=== PATIENT | male | born 1955 | race American Indian/Alaskan Native ===

== ENCOUNTER 2020-09-27 07:34 | Observation (INO) | payer MEDICARE ==
--- NOTE | 2020-09-27 07:55 | Emergency Department Report ---
ED Shortness of Breath HPI - General Chief Complaint: Dyspnea/Respdistress Stated Complaint: CRISS/WEAKNESS X 2 WEEKS Time Seen by Provider: 09/27/20 07:49 Source: patient, EMS Mode of arrival: Stretcher Limitations: No Limitations - History of Present Illness Initial Comments: Chief complaint: Shortness of breath low oxygen HPI: This is a 65-year-old male with history of end-stage renal disease on hemodialysis Friday, hypertension, stomach cancer in remission status post chemotherapy who presents with shortness of breath cough for several weeks. Patient has had generalized weakness. Patient was transported from dialysis center [facility] on [facility] due to low oxygen saturation. Oxygen saturation 67% on room air. 99% on nasal cannula. Next No history of COPD or CHF. He smoked tobacco several years ago remotely. 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 He lives alone. No known sick contacts. MD Complaint: shortness of breath, cough -: Gradual (2 weeks) Severity: moderate Consistency: constant Improves With: nothing Worsens With: nothing Known History Of: other (End-stage renal disease on hemodialysis) Associated Symptoms: cough, other (Generalized malaise) - Related Data Allergies Allergy/AdvReac Type Severity Reaction Status Date / Time enalapril Allergy Anaphylaxis Verified 09/27/20 07:41 ED Review of Systems ROS: Stated complaint: CRISS/WEAKNESS X 2 WEEKS Other details as noted in HPI Comment: All other systems reviewed and negative Constitutional: malaise. denies: chills, fever Respiratory: cough, shortness of breath Gastrointestinal: denies: abdominal pain Musculoskeletal: denies: back pain Neurological: denies: headache, weakness ED Past Medical Hx - Past Medical History Previous Medical History?: Yes Hx Hypertension: Yes Hx Renal Disease: Yes (End-stage renal disease hemodialysis Friday) Additional medical history: Stomach cancer in remission since 2019 - Surgical History Past Surgical History?: No - Family History Family history: hypertension - Social History Smoking Status: Former Smoker Substance Use Type: None ED Physical Exam - General Limitations: No Limitations General appearance: alert, in no apparent distress, other (Frequent cough speaking full word sentences) - Head Head exam: Present: atraumatic, normocephalic - Eye Eye exam: Present: normal appearance - ENT ENT exam: Present: mucous membranes moist - Neck Neck exam: Present: normal inspection, full ROM - Respiratory Respiratory exam: Present: rales, decreased breath sounds. Absent: respiratory distress, wheezes, rhonchi, accessory muscle use, prolonged expiratory - Cardiovascular Cardiovascular Exam: Present: regular rate, normal rhythm, normal heart sounds. Absent: systolic murmur, diastolic murmur, rubs, gallop - GI/Abdominal GI/Abdominal exam: Present: soft, normal bowel sounds. Absent: distended, tenderness, guarding, rebound - Rectal Rectal exam: Present: deferred - Extremities Exam Extremities exam: Present: normal inspection - Neurological Exam Neurological exam: Present: alert, oriented X3 - Psychiatric Psychiatric exam: Present: normal affect, normal mood - Skin Skin exam: Present: warm, dry, intact, normal color. Absent: rash ED Course Vital Signs 09/27/20 09/27/20 09/27/20 07:41 09:23 09:37 Pulse Rate 62 74 Respiratory 20 22 22 Rate Blood Pressure Blood Pressure 160/80 [Left] Blood Pressure 160/80 160/68 [Right] O2 Sat by Pulse 91 88 92 Oximetry 09/27/20 09/27/20 09:45 10:01 Pulse Rate 74 75 Respiratory 22 22 Rate Blood Pressure 159/86 174/97 Blood Pressure [Left] Blood Pressure [Right] O2 Sat by Pulse 96 97 Oximetry ED Medical Decision Making - Lab Data Result diagrams: 09/27/20 11:02 09/27/20 11:02 Laboratory Results - last 24 hr 09/27/20 09/27/20 09/27/20 11:02 11:02 11:02 WBC 9.9 RBC 3.78 Hgb 10.8 L Hct 32.7 L MCV 87 MCH 29 MCHC 33 RDW 18.6 H Plt Count 203 Lymph % (Auto) 12.7 L [place] % (Auto) 12.9 H Eos % (Auto) 1.0 Baso % (Auto) 0.6 Lymph # (Auto) 1.3 [place] # (Auto) 1.3 H Eos # (Auto) 0.1 Baso # (Auto) 0.1 Seg Neutrophils % 72.8 H Seg Neutrophils # 7.2 D-Dimer Sodium 143 Potassium 3.0 L Chloride 94.2 L Carbon Dioxide 36 H Anion Gap 16 BUN 35 H Creatinine 7.5 H Estimated GFR 9 BUN/Creatinine Ratio 5 Glucose 116 H Calcium 9.4 Total Bilirubin 0.90 AST 22 ALT 19 Alkaline Phosphatase 197 H Lactate Dehydrogenase 272 H C-Reactive Protein 4.60 H Total Protein 6.9 Albumin 3.5 L Albumin/Globulin Ratio 1.0 09/27/20 11:02 WBC RBC Hgb Hct MCV MCH MCHC RDW Plt Count Lymph % (Auto) [place] % (Auto) Eos % (Auto) Baso % (Auto) Lymph # (Auto) [place] # (Auto) Eos # (Auto) Baso # (Auto) Seg Neutrophils % Seg Neutrophils # D-Dimer 576.35 H Sodium Potassium Chloride Carbon Dioxide Anion Gap BUN Creatinine Estimated GFR BUN/Creatinine Ratio Glucose Calcium Total Bilirubin AST ALT Alkaline Phosphatase Lactate Dehydrogenase C-Reactive Protein Total Protein Albumin Albumin/Globulin Ratio - EKG Data -: EKG Interpreted by Id EKG shows normal: sinus rhythm, axis, intervals, QRS complexes, ST-T waves Rate: normal - EKG Data Interpretation: normal EKG 09/27/20 10:13 EKG 052 EKG obtained EKG interpreted by sd Normal sinus rhythm normal rate normal axis normal intervals no ST elevation no ST-T signs of ischemia normal EKG rate 75 bpm - Radiology Data Radiology results: report reviewed Patient Name: KASEY SHI Gender: Male Date of : 1955 Home Phone: Referring Provider: FABIOLA KRAFT Organization: [facility] Accession Number: [id number] Requested Date: September 27, 2020 07:55 Report Status: Final Requested Procedure: 1 Procedure Description: XR chest 1V ap Modality: XR Findings Reporting MD: Ceasar Agudelo Dictation Time: September 27, 2020 07:27 Alarm Mechanism Adjuster: Not available Exercise Equipment Repair Technician Date: CHEST 1 VIEW INDICATION: Dyspnea. COMPARISON: None available FINDINGS: Support devices: None. Heart: Heart size is at the upper limits of normal. Lungs/Pleura: The interstitium is prominent bilaterally. This could represent interstitial edema or chronic changes. No consolidation or classic infiltrate with air bronchograms. Small bilateral pleural effusions are identified. No pneumothorax. Additional findings: None. IMPRESSION: Borderline heart size, prominent interstitium and small bilateral pleural effusions. This probably represents mild CHF. Interstitial lung disease could be considered. Signer Name: Ceasar Agudelo Jr, MD Signed: 09/27/2020 7:27 AM Workstation Name: [id number] - Medical Decision Making Acute respiratory failure hypoxia: Differential diagnosis includes atypical pneumonia such as COVID-19 infection, pulmonary edema due to renal disease, pulmonary edema due to heart failure., Commune acquired pneumonia. Patient was treated with antibiotics. Decadron also initiated in emergency department for presumable viral pneumonitis. I have consulted vending machine mechanic team. Patient is followed by Reji Frances. Patient admitted to the hospital service in fair condition. Work-up notable for potassium 3.0, Covid markers elevated LDH CRP D-dimer Critical care attestation.: If time is entered above; I have spent that time in minutes in the direct care of this critically ill patient, excluding procedure time. ED Disposition Clinical Impression: Acute respiratory failure with hypoxia, Acute heart failure, Suspected COVID-19 virus infection, End-stage renal disease on hemodialysis, Pulmonary edema Disposition: OP ADMIT IP TO THIS HOSP Is pt being admited?: Yes Does the pt Need Aspirin: No Condition: Stable Instructions: Pulmonary Edema (ED) Referrals: PRIMARY CARE, [Primary Care Provider] - 3-5 Days
--- NOTE | 2020-09-27 08:31 | XRay Report ---
CHEST 1 VIEW INDICATION: Dyspnea. COMPARISON: None available FINDINGS: Support devices: None. Heart: Heart size is at the upper limits of normal. Lungs/Pleura: The interstitium is prominent bilaterally. This could represent interstitial edema or c hronic changes. No consolidation or classic infiltrate with air bronchograms. Small bilateral pleural effusions are identified. No pneumothorax. Additional findings: None. IMPRESSION: Borderline heart size, prominent interstitium and small bilateral pleural effusions. This probably r epresents mild CHF. Interstitial lung disease could be considered. Signer Name: Ceasar Agudelo Jr, MD Signed: 09/27/2020 8:27 AM Workstation Name: [id number]
[2020-09-27 11:29] LABS: Basophils # (Auto) 0.1 K/mm3 (0.0-0.1); Basophils % (Auto) 0.6 % (0.0-1.8); Eosinophils # (Auto) 0.1 K/mm3 (0.0-0.4); Hematocrit 32.7 % (35.5-45.6); Hemoglobin 10.8 gm/dl (11.8-15.2); Lymphocytes # (Auto) 1.3 K/mm3 (1.2-5.4); Lymphocytes % (Auto) 12.7 % (13.4-35.0); Mean Corpuscular HGB Conc 33 % (32-34); Mean Corpuscular Volume 87 fl (84-94); Monocytes # (Auto) 1.3 K/mm3 (0.0-0.8); Monocytes % (Auto) 12.9 % (0.0-7.3); Platelet Count 203 K/mm3 (140-440); Red Blood Count 3.78 M/mm3 (3.65-5.03); Red Cell Distribution Width 18.6 % (13.2-15.2)
[2020-09-27 11:42] LABS: C-Reactive Protein 4.6 mg/dL (0.00-1.30)
[2020-09-27 11:43] LABS: Albumin 3.5 g/dL (3.9-5); Calcium 9.4 mg/dL (8.4-10.2)
[2020-09-27] MEDS ORDERED: cefTRIAXone/NS 1 GM/50 ML 1 GM/50 ML BAG IV ONE (11:53)
[2020-09-27] MEDS ORDERED: AZITHROMYCIN/NS 500 MG/250 ML 500 MG/250 ML BAG IV ONE (11:53)
[2020-09-27] MEDS ORDERED: SODIUM CHLORIDE 0.9% 100 ML IV PRN (14:08)
[2020-09-27 14:11] LABS: Chol/HDL Ratio 1.55 %
--- NOTE | 2020-09-27 15:33 | Consultation ---
History of Present Illness - Reason for Consult Consult date: 09/27/20 end stage renal disease Requesting physician: FABIOLA KRAFT - History of Present Illness This is a 65-year-old male with history of end-stage renal disease on hemodialysis Friday, hypertension, stomach cancer in remission status post chemotherapy who presents with shortness of breath cough for several weeks. Patient has had generalized weakness. Patient was transported from [facility] on [facility] due to low oxygen saturation. Oxygen saturation 67% on room air. 99% on nasal cannula. Next No history of COPD or CHF. He smoked tobacco several years ago remotely. Chest x-ray showed evidence of vascular congestion. Dialysis has been initiated. He is tolerating it well. Denies any nausea vomiting or diarrhea. Patient states that he has not missed any dialysis treatment Past History Past Medical History: cancer, dialysis, hypertension, other (History of stomach cancer and COPD) Past Surgical History: Other (Creation of AV fistula) Social history: other (Remote history of smoking) Family history: no significant family history Medications and Allergies Allergies Allergy/AdvReac Type Severity Reaction Status Date / Time enalapril Allergy Anaphylaxis Verified 09/27/20 07:41 Active Meds: Active Medications Sodium Chloride (Nacl 0.9%) 100 mls @ 999 mls/hr IV BRNADON PRN PRN Reason: Hypotension Review of Systems All systems: negative (Negative except as noted above) Exam - Vital Signs Vital signs: Vital Signs Pulse Resp BP Pulse Ox 62 20 160/80 91 09/27/20 07:41 09/27/20 07:41 09/27/20 07:41 09/27/20 07:41 - General Appearance General appearance: well-developed, well-nourished, appears stated age EENT: PERRL, mucous membranes moist Neck: Present: neck supple, trachea midline. Absent: JVD/HJR, Masses Respiratory: Decreased Breath Sounds (At the bases) Heart: regular, normal heart rate Gastrointestinal: Present: normal, normoactive bowel sounds Integumentary: no rash, other (1+ edema on the left side. AV fistula in his left upper extremity. Cannulated for dialysis.) Results - Lab Results 09/27/20 11:02 09/27/20 11:02 Most recent lab results Calcium 9.4 mg/dL (8.4-10.2) 09/27/20 11:02 Assessment and Plan Impression * End-stage renal disease on maintenance hemodialysis * Shortness of breath. Most likely secondary to CHF * Hypertension * History of stomach cancer * Hypokalemia * Anemia secondary to ESRD Recommendations * Patient is clinically volume overloaded. Chest x-ray also does show some evidence of vascular congestion * Remove fluid as tolerated with dialysis * Continue dialysis on MWF schedule * Epogen per protocol * Use higher potassium bath with dialysis * Binders with meals * Adjust diet and meds for ESRD state * No IV, BP or venipuncture in his access arm * Thank you very much for the consultation. Shall follow along with you
[2020-09-27 16:18] LABS: Hepatitis B Surface Antigen Non-Reactive (Negative); Hepatitis C Virus Antibody Non-Reactive (NonReactive)
--- NOTE | 2020-09-27 19:32 | History and Physical Report ---
History of Present Illness Date of examination: 09/27/20 Date of admission: 09/27/20 11:55 Chief complaint: Shortness of breath and low oxygen since a.m. History of present illness: 65-year-old male with history of end-stage renal disease on hemodialysis Friday, Friday, Friday and hypertension and stomach cancer in remission sent from dialysis center for low oxygen saturation levels. Oxygen saturation levels 67% on room air. With oxygen improved to 99%. No history of CHF or COPD. No fever or chills. No exposure to coronavirus. Shortness of breath at rest and. [facility] nephrology takes care of his dialysis and end-stage renal disease. Patient also has a history of hypertension. Patient is compliant with his medications and hemodialysis. - Past Medical History Previous Medical History?: Yes --Hypertension: Yes --Renal Disease: Yes (End-stage renal disease hemodialysis Friday) Additional medical history: Stomach cancer in remission since 2019 - Surgical History Past Surgical History?: No - Family History Family history: hypertension - Social History Smoking Status: Former Smoker Substance Use Type: None --Review of Systems ROS: Constitutional no weight loss or weight gain no fever or chills HEENT no sore throat no post nasal drip no diplopia Neck no neck stiffness no lymph gland enlargement Chest and lungs shortness of breath at rest CVS orthopnea present, hypoxic GI no nausea no vomiting no diarrhea Genitourinary system no dysuria no flank pain Musculoskeletal system no muscle pains no joint pains 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 no syncope no seizures Skin no rash no itching Psychiatric no depression no homicidal or suicidal tendencies Hematologic no lymphedema or bruising Endocrine no polydipsia no polyuria no cold intolerance no heat intolerance Past History Past Medical History: cancer, dialysis, hypertension, other (History of stomach cancer and COPD) Past Surgical History: Other (Creation of AV fistula) Social history: other (Remote history of smoking) Family history: no significant family history Medications and Allergies Allergies Allergy/AdvReac Type Severity Reaction Status Date / Time enalapril Allergy Anaphylaxis Verified 09/27/20 07:41 Active Meds: Active Medications Sodium Chloride (Nacl 0.9%) 100 mls @ 999 mls/hr IV BRANDON PRN PRN Reason: Hypotension Exam - Constitutional Vitals: Temp Pulse Resp BP Pulse Ox 97.5 F L 73 16 157/85 95 09/27/20 18:59 09/27/20 18:59 09/27/20 18:59 09/27/20 18:59 09/27/20 16:11 General appearance: Present: mild distress, well-nourished - EENT Eyes: Present: PERRL ENT: hearing intact, clear oral mucosa - Neck Neck: Present: supple, normal ROM - Respiratory Respiratory effort: normal Respiratory: bilateral: CTA, rales - Cardiovascular Heart rate: 78 Rhythm: regular Heart Sounds: Present: S1 & S2. Absent: rub, click - Extremities Extremities: pulses symmetrical, No edema Peripheral Pulses: within normal limits - Abdominal General gastrointestinal: Present: soft, non-tender, non-distended, normal bowel sounds Male genitourinary: Present: normal - Integumentary Integumentary: Present: clear, warm, dry - Musculoskeletal Musculoskeletal: gait normal, strength equal bilaterally - Psychiatric Psychiatric: appropriate mood/affect, intact judgment & insight - Neurologic Neurologic: CNII-XII intact, moves all extremities - Allied Health Allied health notes reviewed: nursing, case management HEART Score - HEART Score History: Slightly suspicious Age: 45-65 Risk factors: > 3 risk factors or hx of atherosclerotic disease Troponin: Troponin T 0.211 ng/mL (0.00-0.029) H* 09/27/20 11:02 Troponin: 1-3x normal limit - Critical Actions Critical Actions: 4-6 pts:12-16.6% risk of adverse cardiac event. Should be admitted Results - Labs CBC & Chem 7: 09/28/20 05:14 09/27/20 11:02 Labs: Laboratory Last Values WBC 9.9 K/mm3 (4.5-11.0) 09/27/20 11:02 RBC 3.78 M/mm3 (3.65-5.03) 09/27/20 11:02 Hgb 10.8 gm/dl (11.8-15.2) L 09/27/20 11:02 Hct 32.7 % (35.5-45.6) L 09/27/20 11:02 MCV 87 fl (84-94) 09/27/20 11:02 MCH 29 pg (28-32) 09/27/20 11:02 MCHC 33 % (32-34) 09/27/20 11:02 RDW 18.6 % (13.2-15.2) H 09/27/20 11:02 Plt Count 203 K/mm3 (140-440) 09/27/20 11:02 Lymph % (Auto) 12.7 % (13.4-35.0) L 09/27/20 11:02 [place] % (Auto) 12.9 % (0.0-7.3) H 09/27/20 11:02 Eos % (Auto) 1.0 % (0.0-4.3) 09/27/20 11:02 Baso % (Auto) 0.6 % (0.0-1.8) 09/27/20 11:02 Lymph # (Auto) 1.3 K/mm3 (1.2-5.4) 09/27/20 11:02 [place] # (Auto) 1.3 K/mm3 (0.0-0.8) H 09/27/20 11:02 Eos # (Auto) 0.1 K/mm3 (0.0-0.4) 09/27/20 11:02 Baso # (Auto) 0.1 K/mm3 (0.0-0.1) 09/27/20 11:02 Seg Neutrophils % 72.8 % (40.0-70.0) H 09/27/20 11:02 Seg Neutrophils # 7.2 K/mm3 (1.8-7.7) 09/27/20 11:02 D-Dimer 576.35 ng/mlDDU (0-234) H 09/27/20 11:02 Sodium 143 mmol/L (137-145) 09/27/20 11:02 Potassium 3.0 mmol/L (3.6-5.0) L 09/27/20 11:02 Chloride 94.2 mmol/L (98-107) L 09/27/20 11:02 Carbon Dioxide 36 mmol/L (22-30) H 09/27/20 11:02 Anion Gap 16 mmol/L 09/27/20 11:02 BUN 35 mg/dL (9-20) H 09/27/20 11:02 Creatinine 7.5 mg/dL (0.8-1.3) H 09/27/20 11:02 Estimated GFR 9 ml/min 09/27/20 11:02 BUN/Creatinine Ratio 5 % 09/27/20 11:02 Glucose 116 mg/dL (75-100) H 09/27/20 11:02 Calcium 9.4 mg/dL (8.4-10.2) 09/27/20 11:02 Ferritin 622.6 ng/mL (30.0-300.0) H 09/27/20 11:02 Total Bilirubin 0.90 mg/dL (0.1-1.2) 09/27/20 11:02 AST 22 units/L (5-40) 09/27/20 11:02 ALT 19 units/L (7-56) 09/27/20 11:02 Alkaline Phosphatase 197 units/L (35-129) H 09/27/20 11:02 Lactate Dehydrogenase 272 units/L (91-180) H 09/27/20 11:02 Troponin T 0.211 ng/mL (0.00-0.029) H* 09/27/20 11:02 C-Reactive Protein 4.60 mg/dL (0.00-1.30) H 09/27/20 11:02 NT-Pro-B Natriuret Pep 49040 pg/mL (0-900) H 09/27/20 11:02 Total Protein 6.9 g/dL (6.3-8.2) 09/27/20 11:02 Albumin 3.5 g/dL (3.9-5) L 09/27/20 11:02 Albumin/Globulin Ratio 1.0 % 09/27/20 11:02 Triglycerides 31 mg/dL (2-149) 09/27/20 11:02 Cholesterol 62 mg/dL (50-199) 09/27/20 11:02 LDL Cholesterol Direct 20 mg/dL (50-130) L 09/27/20 11:02 HDL Cholesterol 40 mg/dL (40-59) 09/27/20 11:02 Cholesterol/HDL Ratio 1.55 % 09/27/20 11:02 Procalcitonin 1.12 ng/mL (<0.15) 09/27/20 11:02 Coronavirus (PCR) Negative (Negative) 09/27/20 09:37 Hepatitis A IgM Ab Non-reactive (NonReactive) 09/27/20 11:02 Hep Bs Antigen Non-reactive (Negative) 09/27/20 11:02 Hep B Core IgM Ab Non-reactive (NonReactive) 09/27/20 11:02 Hepatitis C Antibody Non-reactive (NonReactive) 09/27/20 11:02 Microbiology: Microbiology 09/27/20 11:02 Peripheral/Venous Blood Culture - Preliminary Culture in Progress 09/27/20 11:02 Peripheral/Venous Blood Culture - Preliminary Culture in Progress - Imaging and Cardiology EKG: report reviewed (Sinus rhythm sinus tachycardia no acute ST-T wave changes) Chest x-ray: report reviewed (Pulmonary vascular congestion: Bilateral small pleural effusions) Assessment and Plan Advance Directives: Yes (Full code) VTE prophylaxis?: Chemical Plan of care discussed with patient/family: Yes - Patient Problems (1) Acute respiratory failure with hypoxia Current Visit: Yes Status: Acute Plan to address problem: Secondary to volume overload Needs oxygen supplementation BiPAP as necessary (2) End-stage renal disease on hemodialysis Current Visit: Yes Status: Chronic Plan to address problem: Patient to get emergent hemodialysis Nephrology consulted (3) Pulmonary edema Current Visit: Yes Status: Acute Qualifiers: Chronicity: acute Qualified Code(s): J81.0 - Acute pulmonary edema Plan to address problem: Secondary to excessive fluid intake Needs increased ultrafiltration and removal of fluid (4) Hypertension Current Visit: Yes Status: Chronic Qualifiers: Hypertension type: primary hypertension Qualified Code(s): I10 - Essential (primary) hypertension Plan to address problem: Continue antihypertensives and adjust medications (5) Hypokalemia Current Visit: Yes Status: Acute Plan to address problem: Supplemented (6) Suspected COVID-19 virus infection Current Visit: Yes Status: Acute Plan to address problem: Suspected but unlikely Coronavirus PCR to be checked (7) DVT prophylaxis Current Visit: Yes Status: Acute Plan to address problem: On heparin and GI prophylaxis
[2020-09-27] MEDS ORDERED: ACETAMINOPHEN 325 MG TAB PO PRN (20:37)
[2020-09-27] MEDS ORDERED: MORPHINE 2 MG/1 ML INJ IV PRN (20:37)
[2020-09-27] MEDS ORDERED: oxyCODONE /ACETAMINOPHEN 5-325MG TAB PO PRN (20:37)
[2020-09-27] MEDS ORDERED: ONDANSETRON 4 MG/2 ML INJ IV PRN (20:37)
[2020-09-27] MEDS: HEPARIN 5,000 UNIT/1 ML VIAL SUB-Q SCH (22:03)
[2020-09-27] MEDS: FAMOTIDINE 10 MG TAB PO SCH (22:03)
[2020-09-28 06:11] LABS: Hematocrit 35.3 % (35.5-45.6); Hemoglobin 11.6 gm/dl (11.8-15.2); Mean Corpuscular HGB Conc 33 % (32-34); Mean Corpuscular Volume 89 fl (84-94); Platelet Count 203 K/mm3 (140-440); Red Blood Count 3.99 M/mm3 (3.65-5.03); Red Cell Distribution Width 18.7 % (13.2-15.2)
[2020-09-28 06:39] LABS: Albumin 3.3 g/dL (3.9-5); Calcium 8.9 mg/dL (8.4-10.2)
[2020-09-28] MEDS ORDERED: POTASSIUM CHLORIDE ER 20 MEQ TAB PO ONE (07:25)
[2020-09-28 08:08] LABS: Total Cells Counted 100
[2020-09-28 08:10] LABS: Hypochromasia Few; Ovalocytes 1+; Poikilocytosis 1+; Spherocytes 1+; Target Cells 1+
[2020-09-28 08:11] LABS: Anisocytosis Few; Platelet Estimate Consistent w Auto; Toxic Granulation Few
[2020-09-28 08:46] LABS: Creatine Kinase MB 5.9 ng/mL (0.0-4.0)
--- NOTE | 2020-09-28 08:51 | Progress Note ---
Assessment and Plan Impression * End-stage renal disease on maintenance hemodialysis * Shortness of breath. Most likely secondary to CHF * Hypertension * History of stomach cancer * Hypokalemia * Anemia secondary to ESRD Recommendations * Patient had uneventful hemodialysis yesterday. CHF seems to have improved significantly * Shall repeat a chest x-ray. * Consider cardiology evaluation * Continue dialysis on MWF schedule * Epogen per protocol * Hypokalemia has been corrected. Continue with 3K bath with dialysis * Binders with meals * Adjust diet and meds for ESRD state * No IV, BP or venipuncture in his access arm Subjective Date of service: 09/28/20 Interval history: Patient feels better this morning. Shortness of breath has also improved. Currently on oxygen via nasal cannula at 4 L/min. Objective - Vital Signs Vital signs: Vital Signs - 12hr 09/27/20 09/28/20 09/28/20 23:01 04:00 04:48 Temperature 97.9 F 98.0 F Pulse Rate 79 72 Respiratory 20 20 Rate Blood Pressure 145/69 176/92 O2 Sat by Pulse 97 95 95 Oximetry - General Appearance General appearance: well-developed, well-nourished, appears stated age EENT: PERRL, mucous membranes moist Neck: no JVD, no thyromegaly, no carotid bruit, supple Respiratory: Present: Other (Fine crackles in the left base) Cardiology: regular, normal heart rate Gastrointestinal: normal, normoactive bowel sounds Integumentary: no rash, other (No edema. AV fistula in his left upper arm. Good bruit and thrill.) - Lab 09/28/20 05:14 09/28/20 05:14 Most recent lab results Calcium 8.9 mg/dL (8.4-10.2) 09/28/20 05:14 Medications & Allergies - Medications Allergies/Adverse Reactions: Allergies enalapril Allergy (Verified 09/27/20 07:41) Anaphylaxis Active Medications: Generic Name Dose Route Start Last Admin Trade Name Freq PRN Reason Stop Dose Admin Acetaminophen 650 mg 09/27/20 20:37 Acetaminophen 325 Mg Tab PO Q4H PRN Pain MILD(1-3)/Fever >100.5/FORTE Famotidine 10 mg 09/27/20 22:00 09/27/20 22:03 Famotidine 10 Mg Tab PO 10 mg BID CARINE Administration Heparin Sodium (Porcine) 5,000 unit 09/27/20 22:00 09/27/20 22:03 Heparin 5,000 Unit/1 Ml Vial SUB-Q 5,000 unit Q12HR CARINE Administration Sodium Chloride 100 mls @ 999 mls/hr 09/27/20 14:08 Nacl 0.9% IV BRANDON PRN Hypotension Azithromycin 500 mg in 250 mls @ 250 mls/hr 09/28/20 10:00 Zithromax/Ns IV Q24HR CARINE Morphine Sulfate 2 mg 09/27/20 20:37 Morphine 2 Mg/1 Ml Inj IV Q4H PRN Pain, Moderate (4-6) Ondansetron HCl 4 mg 09/27/20 20:37 Ondansetron 4 Mg/2 Ml Inj IV Q8H PRN Nausea And Vomiting Oxycodone/Acetaminophen 1 tab 09/27/20 20:37 09/27/20 22:10 Oxycodone /Acetaminophen 5-325mg Tab PO 1 tab Q6H PRN Administration Pain, Moderate (4-6) Sodium Chloride 10 ml 09/27/20 22:00 09/27/20 22:04 Sodium Chloride 0.9% 10 Ml Flush Syringe IV 10 ml BID CARINE Administration Sodium Chloride 10 ml 09/27/20 20:37 Sodium Chloride 0.9% 10 Ml Flush Syringe IV PRN PRN LINE FLUSH
[2020-09-28] MEDS ORDERED: SODIUM CHLORIDE 0.9% 100 ML IV PRN (09:06)
--- NOTE | 2020-09-28 09:12 | Electrocardiograph Report ---
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
--- NOTE | 2020-09-28 09:30 | XRay Report ---
CHEST 1 VIEW 09/28/2020 9:03 AM INDICATION / CLINICAL INFORMATION: Shortness of breath. COMPARISON: 09/27/2020 FINDINGS: SUPPORT DEVICES: None. HEART / MEDIASTINUM: Stable. LUNGS / PLEURA: Stable peripheral interstitial opacities. Stable bilateral pleural effusion. No pneum othorax. ADDITIONAL FINDINGS: No significant additional findings. IMPRESSION: 1. No adverse change from the prior exam. Signer Name: Baldo Dickerson MD Signed: 09/28/2020 9:25 AM Workstation Name: [id number]
[2020-09-28] MEDS: HEPARIN 5,000 UNIT/1 ML VIAL SUB-Q SCH ×2 (09:42→22:01)
[2020-09-28] MEDS: FAMOTIDINE 10 MG TAB PO SCH ×2 (09:42→22:01)
[2020-09-28] MEDS: AZITHROMYCIN/NS 500 MG/250 ML 500 MG/250 ML BAG IV SCH (09:43)
[2020-09-28] MEDS ORDERED: HEPARIN 5,000 UNIT/1 ML VIAL SUB-Q SCH (10:00)
[2020-09-28] MEDS ORDERED: hydrALAZINE 20 MG/1 ML INJ IV PRN (12:45)
--- NOTE | 2020-09-28 12:45 | Progress Note ---
Assessment and Plan - Patient Problems (1) Acute heart failure Current Visit: Yes Status: Acute Plan to address problem: Acute heart failure multifactorial secondary to volume overload and history of heart failure. Responded very well to dialysis. We will continue dialysis continue diuresis as were doing. Patient is improving. (2) Acute respiratory failure with hypoxia Current Visit: Yes Status: Acute Plan to address problem: Multifactorial secondary to volume overload and congestive heart failure. Continue present diuresis continue hemodialysis as were doing. Add nebulizers every 6 hours as needed (3) DVT prophylaxis Current Visit: Yes Status: Acute (4) Pulmonary edema Current Visit: Yes Status: Acute Qualifiers: Chronicity: acute Qualified Code(s): J81.0 - Acute pulmonary edema (5) Suspected COVID-19 virus infection Current Visit: Yes Status: Acute Plan to address problem: Patient ruled out for COVID-19 (6) End-stage renal disease on hemodialysis Current Visit: Yes Status: Chronic Plan to address problem: Nephrology is involved aware and is dialyzing patient as required. Patient has improved anticipated discharge 1 to 2 days. (7) Hypertension Current Visit: Yes Status: Chronic Qualifiers: Hypertension type: primary hypertension Qualified Code(s): I10 - Essential (primary) hypertension Plan to address problem: Somewhat elevated today we will add hydralazine. Will hold for days of h emodialysis. Subjective Date of service: 09/28/20 Principal diagnosis: Acute respiratory failure Interval history: 65-year-old male with a history of end-stage renal disease presents to the ED with hypoxemia saturations of 67%. Shortness of breath no chest pain. Work-up ED patient found to be in congestive heart failure. Patient was dialyzed yesterday feels much better this a.m. States he is breathing much better O2 saturations are much better not requiring O2 at this time. Patient able to speak in full sentences without any acute distress. No dyspnea with conversation. Objective - Constitutional Vitals: Vital Signs - 12hr 09/28/20 09/28/20 04:00 04:48 Temperature 98.0 F Pulse Rate 72 Respiratory 20 20 Rate Blood Pressure 176/92 O2 Sat by Pulse 95 95 Oximetry General appearance: Present: no acute distress, well-nourished - EENT Eyes: PERRL, EOM intact ENT: hearing intact, clear oral mucosa Ears: bilateral: normal - Neck Neck: supple, normal ROM - Respiratory Respiratory effort: normal Respiratory: bilateral: rhonchi (Rhonchi bilateral bases left greater than right.) - Breasts Breasts: normal - Cardiovascular Rhythm: regular Heart Sounds: Present: S1 & S2. Absent: gallop, rub Extremities: pulses intact, No edema, normal color, Full ROM - Gastrointestinal General gastrointestinal: Present: soft, non-tender, non-distended, normal bowel sounds - Genitourinary Male genitourinary: normal - Integumentary Integumentary: clear, warm, dry - Musculoskeletal Musculoskeletal: 1, strength equal bilaterally - Neurologic Neurologic: moves all extremities - Psychiatric Psychiatric: memory intact, appropriate mood/affect, intact judgment & insight - Labs CBC & Chem 7: 09/28/20 05:14 09/28/20 05:14 Labs: Abnormal lab results 09/27/20 09/27/20 09/27/20 Range/Units 11:02 11:02 11:02 Hgb (11.8-15.2) gm/dl Hct (35.5-45.6) % RDW (13.2-15.2) % Seg Neuts % (Manual) (40.0-70.0) % Lymphocytes % (Manual) (13.4-35.0) % Seg Neutrophils # Man (1.8-7.7) K/mm3 Lymphocytes # (Manual) (1.2-5.4) K/mm3 BUN (9-20) mg/dL Creatinine (0.8-1.3) mg/dL Hemoglobin A1c (4-6) % Ferritin 622.6 H (30.0-300.0) ng/mL Alkaline Phosphatase (35-129) units/L CK-MB (CK-2) (0.0-4.0) ng/mL CK-MB (CK-2) Rel Index (0-4) Troponin T 0.211 H* (0.00-0.029) ng/mL NT-Pro-B Natriuret Pep 47527 H (0-900) pg/mL Albumin (3.9-5) g/dL LDL Cholesterol Direct 20 L (50-130) mg/dL 09/28/20 09/28/20 09/28/20 Range/Units 05:14 05:14 05:14 Hgb 11.6 L (11.8-15.2) gm/dl Hct 35.3 L (35.5-45.6) % RDW 18.7 H (13.2-15.2) % Seg Neuts % (Manual) 90.0 H (40.0-70.0) % Lymphocytes % (Manual) 7.0 L (13.4-35.0) % Seg Neutrophils # Man 9.0 H (1.8-7.7) K/mm3 Lymphocytes # (Manual) 0.7 L (1.2-5.4) K/mm3 BUN 22 H (9-20) mg/dL Creatinine 5.5 H (0.8-1.3) mg/dL Hemoglobin A1c 6.5 H (4-6) % Ferritin (30.0-300.0) ng/mL Alkaline Phosphatase 197 H (35-129) units/L CK-MB (CK-2) (0.0-4.0) ng/mL CK-MB (CK-2) Rel Index (0-4) Troponin T (0.00-0.029) ng/mL NT-Pro-B Natriuret Pep (0-900) pg/mL Albumin 3.3 L (3.9-5) g/dL LDL Cholesterol Direct (50-130) mg/dL 09/28/20 Range/Units 05:14 Hgb (11.8-15.2) gm/dl Hct (35.5-45.6) % RDW (13.2-15.2) % Seg Neuts % (Manual) (40.0-70.0) % Lymphocytes % (Manual) (13.4-35.0) % Seg Neutrophils # Man (1.8-7.7) K/mm3 Lymphocytes # (Manual) (1.2-5.4) K/mm3 BUN (9-20) mg/dL Creatinine (0.8-1.3) mg/dL Hemoglobin A1c (4-6) % Ferritin (30.0-300.0) ng/mL Alkaline Phosphatase (35-129) units/L CK-MB (CK-2) 5.9 H (0.0-4.0) ng/mL CK-MB (CK-2) Rel Index 5.3 H (0-4) Troponin T 0.278 H* D (0.00-0.029) ng/mL NT-Pro-B Natriuret Pep (0-900) pg/mL Albumin (3.9-5) g/dL LDL Cholesterol Direct (50-130) mg/dL HEART Score - HEART Score Age: 45-65 Risk factors: > 3 risk factors or hx of atherosclerotic disease Troponin: Troponin T 0.278 ng/mL (0.00-0.029) H* D 09/28/20 05:14 Troponin: 1-3x normal limit - Critical Actions Critical Actions: 4-6 pts:12-16.6% risk of adverse cardiac event. Should be admitted
[2020-09-28 14:52] LABS: Creatine Kinase MB 5.4 ng/mL (0.0-4.0)
[2020-09-28 18:31] LABS: Creatine Kinase MB 5.8 ng/mL (0.0-4.0)
[2020-09-28] MEDS ORDERED: TEMAZEPAM 15 MG CAP PO ONE (22:47)
--- NOTE | 2020-09-29 10:20 | Discharge Summary ---
Providers - Providers Date of Admission: 09/27/20 11:55 Date of discharge: 09/29/20 Attending physician: KASHMIR NEGRON 09/27/20 12:23 Consult to Physician [CONS] Stat Comment: Consulting Provider: NIKI SHETTY Physician Instructions: Reason For Exam: esrd Primary care physician: [facility] Hospitalization Condition: Stable Hospital course: 65-year-old male with a history of end-stage renal disease presents to the ED with hypoxemia saturations of 67%. Shortness of breath no chest pain. Work-up ED patient found to be in congestive heart failure. Patient is actually on home O2 at 3 L. He uses it as needed. Patient improved with hemodialysis. Shortness of breath improved stable in the bed with 3 L O2. Patient stable for discharge with his regular scheduled home O2. Was most likely secondary to volume overload. Patient also may have some underlying COPD as well. No evidence of failure on physical exam no JVD no lower extremity edema no ascites. Disposition: DC-01 TO HOME OR SELFCARE Final Discharge Diagnosis (Prints w/discharge instructions): Acute hypoxic respiratory failure - Discharge Diagnoses (1) Acute heart failure Status: Acute Comment: Patient diagnosed with acute heart failure. Resolved with hemodialysis. Stable to be discharged after hemodialysis. With home O2. Most likely treating underlying COPD. Follow-up with pulmonology outpatient. Be discharged with 3 L O2. Sats 98% on 3 L. (2) Acute respiratory failure with hypoxia Status: Acute Comment: Resolved. Underlying COPD volume overload for end- stage renal disease. (3) DVT prophylaxis Status: Acute (4) Pulmonary edema Status: Acute Qualifiers: Chronicity: acute Qualified Code(s): J81.0 - Acute pulmonary edema Comment: Mild interstitial edema on presentation. Did have wheezing on exam. (5) Suspected COVID-19 virus infection Status: Acute Comment: Negative for Covid. (6) End-stage renal disease on hemodialysis Status: Chronic Comment: Resume hemodialysis Friday and Fridays. (7) Hypertension Status: Chronic Qualifiers: Hypertension type: primary hypertension Qualified Code(s): I10 - Essential (primary) hypertension Comment: Fairly well controlled. Systolic blood pressure 165 today we will hold because patient is going to hemodialysis today. Has had hypotension in the past. Core Measure Documentation - Palliative Care Palliative Care/ Comfort Measures: Not Applicable - Core Measures Any of the following diagnoses?: none Exam - Constitutional Vitals: Temp Pulse Resp BP Pulse Ox 97.7 F 73 20 176/88 96 09/28/20 21:55 09/29/20 04:22 09/28/20 23:00 09/29/20 04:22 09/29/20 04:22 General appearance: Present: no acute distress, well-nourished - EENT Eyes: Present: PERRL ENT: hearing intact, clear oral mucosa - Neck Neck: Present: supple, normal ROM - Respiratory Respiratory effort: normal Respiratory: bilateral: wheezing - Cardiovascular Heart Sounds: Present: S1 & S2. Absent: rub, click - Extremities Extremities: pulses symmetrical, No edema Peripheral Pulses: within normal limits - Abdominal General gastrointestinal: Present: soft, non-tender, non-distended, normal bowel sounds Male genitourinary: Present: normal - Integumentary Integumentary: Present: clear, warm, dry - Musculoskeletal Musculoskeletal: gait normal, strength equal bilaterally - Psychiatric Psychiatric: appropriate mood/affect, intact judgment & insight - Neurologic Neurologic: CNII-XII intact, moves all extremities Plan Activity: up only with assistance Weight Bearing Status: Full Weight Bearing Diet: renal Special Instructions: restrict fluid intake to (1.5l), home oxygen via, home health RN Durable Medical Equipment Needed Upon Discharge: Oxygen Follow up with: PRIMARY CARE, [Primary Care Provider] - 3-5 Days Prescriptions: Famotidine [Pepcid] 10 mg PO BID #60 tablet
[2020-09-29] MEDS: FAMOTIDINE 10 MG TAB PO SCH (10:48)
[2020-09-29] MEDS: HEPARIN 5,000 UNIT/1 ML VIAL SUB-Q SCH (10:48)
[2020-09-29] MEDS: ALBUTEROL 2.5 MG/3 ML NEBU IH SCH ×3 (11:11→21:15)
[2020-09-29] MEDS: AZITHROMYCIN/NS 500 MG/250 ML 500 MG/250 ML BAG IV SCH (12:32)
--- NOTE | 2020-09-29 13:51 | Progress Note ---
Assessment and Plan Impression * End-stage renal disease on maintenance hemodialysis * Shortness of breath. Most likely secondary to CHF * Hypertension * History of stomach cancer * Hypokalemia * Anemia secondary to ESRD Recommendations * Patient is scheduled for hemodialysis treatment for today clinically out of CHF. * Chest x-ray results reviewed * Continue dialysis on MWF schedule * Epogen per protocol * Hypokalemia has been corrected. Continue with 3K bath with dialysis * Binders with meals * Adjust diet and meds for ESRD state * No IV, BP or venipuncture in his access arm * No objection to discharge after dialysis today Subjective Date of service: 09/29/20 Principal diagnosis: Acute respiratory failure Interval history: Patient is comfortable today. Shortness of breath is better. He does however complain of some chills at times. No nausea or vomiting Objective - Vital Signs Vital signs: Vital Signs - 12hr 09/29/20 09/29/20 09/29/20 04:22 11:11 11:19 Temperature 97.4 F L Pulse Rate 73 79 Pulse Rate [ 80 Anterior Bilateral Throughout] Respiratory 22 Rate Respiratory 20 Rate [Anterior Bilateral Throughout] Blood Pressure 176/88 177/94 O2 Sat by Pulse 96 92 Oximetry - General Appearance General appearance: well-developed, well-nourished, appears stated age EENT: PERRL, mucous membranes moist Neck: no JVD, no thyromegaly, no carotid bruit, supple Respiratory: Present: Clear to Ascultation Cardiology: regular, normal heart rate, S1S2, no murmurs Gastrointestinal: normal, normoactive bowel sounds Integumentary: no rash, other (No edema. AV fistula in his left upper arm. Good bruit and thrill.) - Lab 09/28/20 05:14 09/28/20 05:14 Most recent lab results Calcium 8.9 mg/dL (8.4-10.2) 09/28/20 05:14 Medications & Allergies - Medications Allergies/Adverse Reactions: Allergies enalapril Allergy (Verified 09/27/20 07:41) Anaphylaxis Home Medications: Home Medications Medication Instructions Recorded Confirmed Last Taken Type ALBUTEROL NEB's [Proventil 0.083% 2.5 mg IH TID PRN #1 neb 09/29/20 Unknown Rx NEBS] Acetaminophen [Acetaminophen TAB] 650 mg PO Q4H PRN tablet 09/29/20 Unknown Rx Albuterol Sulfate [Albuterol 0.63% 0.63 mg IH TID PRN #7 ml 09/29/20 Unknown Rx NEBS] Famotidine [Pepcid] 10 mg PO BID #60 tablet 09/29/20 Unknown Rx Active Medications: Generic Name Dose Route Start Last Admin Trade Name Freq PRN Reason Stop Dose Admin Acetaminophen 650 mg 09/27/20 20:37 Acetaminophen 325 Mg Tab PO Q4H PRN Pain MILD(1-3)/Fever >100.5/FORTE Albuterol 2.5 mg 09/29/20 10:45 09/29/20 13:25 Albuterol 2.5 Mg/3 Ml Nebu IH 2.5 mg Q6HRT CARINE Administration Famotidine 10 mg 09/27/20 22:00 09/29/20 10:48 Famotidine 10 Mg Tab PO Not Given BID CARINE Heparin Sodium (Porcine) 5,000 unit 09/27/20 22:00 09/29/20 10:48 Heparin 5,000 Unit/1 Ml Vial SUB-Q Not Given Q12HR CARINE Hydralazine HCl 10 mg 09/28/20 12:45 09/28/20 22:06 Hydralazine 20 Mg/1 Ml Inj IV 10 mg Q4HR PRN Administration Hypertension SBP>165 Azithromycin 500 mg in 250 mls @ 250 mls/hr 09/28/20 10:00 09/29/20 12:32 Zithromax/Ns IV Not Given Q24HR [facility] Sodium Chloride 100 mls @ 999 mls/hr 09/28/20 09:06 Nacl 0.9% IV BRANDON PRN Hypotension Morphine Sulfate 2 mg 09/27/20 20:37 Morphine 2 Mg/1 Ml Inj IV Q4H PRN Pain, Moderate (4-6) Ondansetron HCl 4 mg 09/27/20 20:37 Ondansetron 4 Mg/2 Ml Inj IV Q8H PRN Nausea And Vomiting Oxycodone/Acetaminophen 1 tab 09/27/20 20:37 09/27/20 22:10 Oxycodone /Acetaminophen 5-325mg Tab PO 1 tab Q6H PRN Administration Pain, Moderate (4-6) Sodium Chloride 10 ml 09/27/20 22:00 09/28/20 22:01 Sodium Chloride 0.9% 10 Ml Flush Syringe IV 10 ml BID CARINE Administration Sodium Chloride 10 ml 09/27/20 20:37 Sodium Chloride 0.9% 10 Ml Flush Syringe IV PRN PRN LINE FLUSH
[2020-09-29 19:37] VITALS: BP 166/108
== END 2020-09-29 20:45 | disposition home or self-care (01) ==
LOC: ED 07:34 → 3A 11:55
PROVIDERS: ADMIT Internal Medicine; ATTEND Internal Medicine
DX: J96.01 Acute respiratory failure with hypoxia (principal); Z20.822 Contact with and (suspected) exposure to COVID-19; I13.2 Hypertensive heart and chronic kidney disease with heart failure and with stage 5 chronic kidney disease, or end stage renal disease; I50.9 Heart failure, unspecified; N18.6 End stage renal disease; D63.1 Anemia in chronic kidney disease; J81.0 Acute pulmonary edema; E87.6 Hypokalemia; Z87.891 Personal history of nicotine dependence; Z85.028 Personal history of other malignant neoplasm of stomach; Z79.899 Other long term (current) drug therapy; Z98.890 Other specified postprocedural states
CPT/HCPCS: 36415; 71045; 80053; 80061; 80074; 82550; 82553; 82728; 82962; 83036; 83615; 83880; 84145; 84484; 85025; 85379; 86140; 87040; 93005; 94640; 96365; 96366; 96367; 96372; 96375; 99285; G0257; G0378; J0360; J0456; J0696; J1644; U0003; 85007